=== PATIENT | male | born 1955 ===

== ENCOUNTER 2020-08-17 11:58 | Outpatient (REF) | payer SELFPAY ==
[2020-08-17 12:52] LABS: Cholesterol 161 mg/dL
== END 2020-08-17 11:59 | disposition home or self-care (01) ==
LOC: HO.LNC 11:58
PROVIDERS: Visit Provider Pathology Anatomic Pathology & Clinical Pathology
DX: Z13.89 Encounter for screening for other disorder (principal)
CPT/HCPCS: 36415; 82465